=== PATIENT | female | born 1965 | race Hispanic/Latino ===

== ENCOUNTER → 2018-02-20 | Outpatient (CLI) | payer MEDICARE ==
[~2018-02-20] MED LIST: ASPIRIN81 MG PO; Cyclobenzaprine Hcl PO; Insulin Detemir SQ; JANUVIA100 MG PO; LOPRESSOR25 MG PO; Nifedipine PO; PROTONIX40 MG/ML PO; REGLAN10 MG PO
--- NOTE | 2018-02-20 12:44 | Diagnostic Imaging Report ---
EXAMINATION: Renal Doppler ultrasound. CLINICAL HISTORY :Hypertension, end stage renal disease. COMPARISON: <None available.> TECHNIQUE: Grayscale and color Doppler evaluation of the kidneys and bladder was performed in transverse and longitudinal planes. Doppler interrogation of the main, hilar, segmental and arcuate renal arteries bilaterally as well as evaluation of the aorta were performed. DISCUSSION: Exam somewhat limited by bowel gas and inability to breath hold. RIGHT KIDNEY: The right kidney measures 9.6 cm in length and shows normal echogenicity. The right renal cortex measures 1.6 cm. No hydronephrosis, shadowing calculi or solid mass lesions. The right main renal artery ostium could not be visualized due to overlying bowel gas. Right main renal artery PSV is 107 cm/s. Right hilar renal artery PSV is 78.8. Highest right segmental artery PSV is 60.7 cm/sec. Arterial waveforms are normal. The right renal artery PSV/aortic PSV ratio is 1.2. LEFT KIDNEY: The left kidney measures 10 cm in length and shows normal echogenicity. The left renal cortex measures 1.6 cm. No hydronephrosis, shadowing calculi or solid mass lesions. Left main renal artery PSV is 93.9 cm/sec. Left hilar renal artery PSV is 73.9. Highest left segmental artery PSV is 60.7 cm/sec. Arterial waveforms are normal. The left renal artery PSV/aortic PSV ratio is 1.1. Abdominal aortic PSV is 88.5 cm/sec. BLADDER: Unremarkable. IMPRESSION: Exam somewhat limited by bowel gas and inability to breath hold. Unremarkable renal doppler ultrasound. No sonographic evidence of renal artery stenosis. Signed by: Dr. Wero Yang MD on 02/20/2018 12:40 PM
== END ==
LOC: US 09:40
PROVIDERS: ATTEND Internal Medicine Nephrology
DX: N18.6 End stage renal disease (principal); I10 Essential (primary) hypertension
CPT/HCPCS: 93976

== ENCOUNTER 2018-08-22 23:59 | Emergency (ER) | payer MEDICARE ==
[~2018-08-22] VITALS: Ht 154.9 cm; Wt 83.5 kg
--- OUTSIDE RECORDS SUMMARY | 2018-08-23 00:02 | XMS REPORT ---
Author [facility] Address Unknown Phone Unavailable Care Team Providers Care Park Guard Name Role Phone RENETTA BELLAMY Unavailable Unavailable Payers Payer Name Policy Type Policy Number Effective Date Expiration Date Problems This patient has no known problems. Allergies, Adverse Reactions, Alerts Allergy Name Allergy Type Status Severity Reaction(s) Onset Date Inactive Date Treating Clinician Comments shellfish derived DA Active MO 2018-03-06 00:00:00 No Known Drug Allergies DA Active U 2017-05-30 00:00:00 sea food DA Active MO 2016-04-21 00:00:00 Medications This patient has no known medications. Results Test Description Test Time Test Comments Text Results Atomic Results Result Comments SCR MAMM BILATERAL GIGI CAD DIGITAL 2018-05-15 14:25:23 - SCR MAMM BILATERAL GIGI CAD DIGITALBILATERAL DIGITAL SCREENING MAMMOGRAM 3D/2D WITH CAD: 05/15/2018CLINICAL: Asymptomatic. Digital breast tomosynthesis was performed in addition to routine CC and MLO views. Current mammographic images were evaluated by either a [employer] M-Vu or a [employer] ImageChecker CAD (computer aided detection system). Comparison is made to exams dated 04/07/2013 mammogram, 02/26/2012 mammogram, and 01/30/2011 mammogram - [facility]-. There are scattered fibroglandular tissues in both breasts. There are benign scattered calcifications in both breasts. No suspicious mass, architectural distortion, malignant type calcification, or lymph node abnormality detected. Breast architecture is stable compared to prior exams.IMPRESSION: BENIGNThere is no mammographic evidence of malignancy. Resume annual screening mammography in one year. Fercho Mcgregor M.D. ss/penrad:05/15/2018 14:25:23 Employee Placement Specialist: Erica ROCHE, [facility]-FWletter sent: BIRADS 1-2 Normal Mammogram BI-RADS: 2 Benign US RENAL/LIVER DOPPLER LTD 2018-02-20 12:28:00 [place] [id number] Patient Name: DIEGO ELIZABETH V MR #: [id number] : 1965 Age/Sex: 52/F Req #: [id number] Adm Physician: Ordered by: RENETTA BELLAMY MD Report #: [id number] Location: US Room/Bed: Procedure: [id number] US/US RENAL/LIVER DOPPLER LTD Exam Date: Exam Time: REPORT STATUS: Signed EXAMINATION: Renal Doppler ultrasound. CLINICAL HISTORY :Hypertension, end stage renal disease. COMPARISON: <None available.> TECHNIQUE: Grayscale and color Doppler evaluation of the kidneys and bladder was performed in transverse and longitudinal planes. Doppler interrogation of the main, hilar, segmental and arcuate renal arteries bilaterally as well as evaluation of the aorta were performed. DISCUSSION: Exam somewhat limited by bowel gas and inability to breath hold. RIGHT KIDNEY: The right kidney measures 9.6 cm in length and shows normal echogenicity. The right renal cortex measures 1.6 cm. No hydronephrosis, shadowing calculi or solid mass lesions. The right main renal artery ostium could not be visualized due to overlying bowel gas. Right main renal artery PSV is 107 cm/s. Right hilar renal artery PSV is 78.8. Highest right segmental artery PSV is 60.7 cm/sec. Arterial waveforms are normal. The right renal artery PSV/aortic PSV ratio is 1.2. LEFT KIDNEY: The left kidney measures 10 cm in length and shows normal echogenicity. The left renal cortex measures 1.6 cm. No hydronephrosis, shadowing calculi or solid mass lesions. Left main renal artery PSV is 93.9 cm/sec. Left hilar renal artery PSV is 73.9. Highest left segmental artery PSV is 60.7 cm/sec. Arterial waveforms are normal. The left renal artery PSV/aortic PSV ratio is 1.1. Abdominal aortic PSV is 88.5 cm/sec. BLADDER: Unremarkable. IMPRESSION: Exam somewhat limited by bowel gas and inability to breath hold. Unremarkable renal doppler ultrasound. No sonographic evidence of renal artery stenosis. Signed by: Dr. Rocky Vann MD on 02/20/2018 12:40 PM Dictated By: ROCKY VANN MD [id number] Transcribed By: CHANO on 02/20/18 1240 COPY TO: RENETTA BELLAMY MD
--- OUTSIDE RECORDS SUMMARY | 2018-08-23 00:02 | XMS REPORT | Clinical Summary ---
Author Author [facility] Address Unknown Phone Unavailable Care Team Providers Care Instrumentation Tech Name Role Phone Pcp, No PCP Unavailable Allergies Comments Active Allergy Reactions Severity Noted Date Shellfish Containing 03/30/2018 Products Medications End Date Status Medication Sig Dispensed Refills Start Date Active glipiZIDE (GLUCOTROL) 5 Take 5 mg by 0 MG tablet mouth daily. Active atorvastatin (LIPITOR) 10 Take 10 mg by 0 MG tablet mouth daily. Active FA-vit Take 1 tablet 0 Bcomp&C-ombakvgy-nttg by mouth (FOLIC ACID-VITAMIN B daily. COMPLEX-VITAMIN J-[id number]) 3-70-15 mg-mcg-mg Tab Active amLODIPine (NORVASC) 10 Take 10 mg by 0 MG tablet mouth daily. Active metoprolol (LOPRESSOR) Take 100 mg 0 100 MG tablet by mouth 2 (two) times daily. Active lisinopril Take 40 mg by 0 (PRINIVIL,ZESTRIL) 40 MG mouth daily. tablet Active aspirin 81 MG EC tablet Take 81 mg by 0 mouth daily. Active lactulose (CHRONULAC) 10 Take 20 g by 0 gram/15 mL solution mouth 2 (two) times daily. Active Problems Not on file Encounters Care Team Description Date Type Specialty Jessica Neely MD [place], Florencia P RN ESRD (end stage renal disease) on dialysis ([facility]) (Primary Dx); Pre-transplant evaluation for chronic kidney disease; Diabetes mellitus due to underlying condition with chronic kidney disease on chronic dialysis, without long-term current use of insulin ([facility]); Hypertensive renal disease 05/02/2018 Office Visit Transplant Jessica Neely MD ESRD (end stage renal disease) on dialysis (HCC); Pre-transplant evaluation for chronic kidney disease; Diabetes mellitus due to underlying condition with chronic kidney disease on chronic dialysis, without long-term current use of insulin (HCC); Hypertensive renal disease 05/02/2018 Orders Only Transplant Hepatology Esthela Doshi, [place] 04/28/2018 Abstract Transplant Christiana Padron 04/13/2018 Abstract Transplant Hepatology Christiana Padron 04/13/2018 Abstract Transplant Hepatology Esthela Doshi RN 04/13/2018 Abstract Transplant Christiana Padron Appointment (Patient called back after having scheduled her appt for 05/09 to request another date so her daughter can attend the evaluation with her. Chose May 02 instead.) 04/03/2018 Telephone Transplant Christiana Padron Appointment (Called pt to [facility] renal tx eval appt. No answer. Left detailed voicemail msg and call back info.) 03/31/2018 Telephone Transplant Christiana Padron 03/30/2018 Abstract Transplant after 08/22/2017 Social History Date Tobacco Use Types Packs/Day Years Used Never Assessed Sex Assigned at Date Recorded Not on file Industry Job Start Date Occupation Not on file Not on file Not on file Travel End Travel History Travel Start No recent travel history available. Last Filed Vital Signs Time Taken Vital Sign Reading - Blood Pressure - - Pulse - - Temperature - - Respiratory Rate - - Oxygen Saturation - - Inhaled Oxygen - Concentration 03/30/2018 12:33 PM [employer]CIAL LOAN CO[employer]INATOR Weight 86.2 kg (190 lb) 03/30/2018 12:33 PM COMMERCIAL LOAN COORDINATOR Height 154.9 cm (5' 1") 03/30/2018 12:33 PM COMMERCIAL LOAN COORDINATOR Body Mass Index 35.9 Plan of Treatment Not on file Procedures Comments Procedure Name Priority Date/Time Associated Diagnosis TRANSFUSION SERVICE 05/03/2018 REPORT - SCAN 5:55 PM COMMERCIAL LOAN COORDINATOR TYPE AND SCREEN, Routine 05/02/2018 ESRD (end stage renal AUTOMATED 11:28 AM COMMERCIAL LOAN COORDINATOR disease) on dialysis (HCC) Pre-transplant evaluation for chronic kidney disease Diabetes mellitus due to underlying condition with chronic kidney disease on chronic dialysis, without long-term current use of insulin (HCC) Hypertensive renal disease after 08/22/2017 Results * TRANSFUSION SERVICE REPORT - SCAN (05/03/2018 5:55 PM COMMERCIAL LOAN COORDINATOR) Narrative Performed At * Type and Screen, Automated (05/02/2018 11:28 AM COMMERCIAL LOAN COORDINATOR) ABO/RH AUTOMATED (BEAKER) A POSITIVE [facility] Ab Scrn NEGATIVE [facility] Specimen Blood Performing Organization Address City/State/Zipcode Phone Number [facility] [address] [place] [address] [facility] after 08/22/2017 Insurance Payer Benefit Subscriber ID Type Phone Address Plan / Group MEDICARE MEDICARE A xxxxxxxxxx Medicare B MCR SUPPLEMENT/INDIVIDUAL AARP/UNITE xxxxxxxxxxx [facility] D HEALTHCARE
--- NOTE | 2018-08-23 00:20 | NUR ---
DR BERMAN INFORMED OF BS [id number].
[2018-08-23 00:31] LABS: BASOPHILS % 0.5 % (0.0-1.0); EOSINOPHILS # (AUTO) 0.3 (0.0-0.4); EOSINOPHILS % 3.7 % (0.0-6.0); HEMATOCRIT 29.6 % (34.2-44.1); HEMOGLOBIN 9.8 g/dL (12.0-16.0); LYMPHOCYTES # (AUTO) 2.5 (1.0-3.2); MEAN CORPUSCULAR HEMOGLOBIN 30.5 pg (28-32); MEAN CORPUSCULAR HGB CONC 33.1 g/dL (31-35); MEAN CORPUSCULAR VOLUME 92.2 fL (81-99); MONOCYTES # (AUTO) 0.4 (0.2-0.8); MONOCYTES % 5.3 % (4.4-11.3); NEUTROPHILS % 60.1 % (38.7-80.0); PLATELET COUNT 205 x10e3/uL (140-360); RED BLOOD COUNT 3.21 x10e6/uL (3.6-5.1); RED CELL DISTRIBUTION WIDTH 12.5 % (11.7-14.4)
[2018-08-23 00:52] LABS: ALANINE AMINOTRANSFERASE 32 IU/L (0-55); ALBUMIN 3.1 g/dL (3.5-5.0); ALBUMIN/GLOBULIN RATIO 0.9 (0.8-2.0); ALKALINE PHOSPHATASE 170 IU/L (40-150); ANION GAP 16.1 mmol/L (8-16); BLOOD UREA NITROGEN 68 mg/dL (7-26); BUN/CREATININE RATIO 9 (6-25); CARBON DIOXIDE 17 mmol/L (22-29); CHLORIDE 104 mmol/L (98-107); CREATINE KINASE 70 IU/L (29-168); CREATININE, SERUM 7.27 mg/dL (0.57-1.11); EST GLOMERULAR FILTRATION RATE 6 ML/MIN (60-); LIPASE 71 U/L (8-78); POTASSIUM 5.1 mmol/L (3.5-5.1); SODIUM 132 mmol/L (136-145)
[2018-08-23 00:54] LABS: GLUCOSE 464 mg/dL (74-118)
--- NOTE | 2018-08-23 00:56 | NUR ---
Jennie lyons in [facility] - 08/23/18 at [address] BERMAN INFORMED OF BS 425.
[2018-08-23] MEDS ORDERED: HYDRALAZINE HCL 20 MG/ML VIAL IV STA (01:07)
[2018-08-23] MEDS ORDERED: INSULIN REGULAR, HUMAN 100 UNIT/1 ML 3ML VIAL IV ONE (01:15)
[2018-08-23 01:30] LABS: CLARITY,URINE CLEAR (CLEAR); COLOR,URINE YELLOW (YELLOW); KETONES,URINE NEGATIVE (NEGATIVE); LEUKOCYTE ESTERASE ,URINE NEGATIVE (NEGATIVE); NITRITE,URINE NEGATIVE (NEGATIVE); PROTEIN,URINE DIPSTICK 2+ (NEGATIVE)
[2018-08-23 01:31] LABS: BILIRUBIN,URINE NEGATIVE (NEGATIVE); URINE UROBILINOGEN 0.2 mg/dL (0.2 - 1)
[2018-08-23 01:41] LABS: BACTERIA,URINE FEW /HPF; EPITHELIAL CELLS,URINE FEW /LPF; RBC,URINE 21-50 /HPF (0-5); WBC,URINE (MAN) 0-5 /HPF (0-5)
--- NOTE | 2018-08-23 02:19 | Diagnostic Imaging Report ---
EXAMINATION: CHEST SINGLE (NOT PORTABLE) INDICATION: ^ERMD ORDER ^[id number] ^[id number] ^Y COMPARISON: 04/21/2016 FINDINGS: AP view TUBES and LINES: None. LUNGS: Lungs are well inflated. Lungs are clear. There is no evidence of pneumonia or pulmonary edema. PLEURA: No pleural effusion or pneumothorax. HEART AND MEDIASTINUM: The cardiac silhouette is mildly enlarged on this AP view, unchanged. BONES AND SOFT TISSUES: No acute osseous lesion. Soft tissues are unremarkable. UPPER ABDOMEN: No free air under the diaphragm. IMPRESSION: No acute thoracic abnormality. No change from prior exam. Signed by: Dr. Filiberto Chaudhari MD on 08/23/2018 2:16 AM
--- NOTE | 2018-08-23 02:22 | Diagnostic Imaging Report ---
EXAM: Abdomen 2 Views INDICATION: ^ORDER PLACED BY ^[id number] ^[id number] ^Y COMPARISON: None FINDINGS: Limited by body habitus. Nonobstructive bowel gas pattern. No signs of pneumoperitoneum. Moderate colonic stool burden. No acute osseous abnormality. Clear lung bases. Pelvic phleboliths. Vascular calcifications. IMPRESSION: Nonobstructive bowel gas pattern. Signed by: Dr. Filiberto Chaudhari MD on 08/23/2018 2:19 AM
[2018-08-23 02:25] VITALS: BP 155/67
== END 2018-08-23 02:40 | disposition home or self-care (01) ==
LOC: ER 23:59
DX: R53.1 Weakness (principal); E11.65 Type 2 diabetes mellitus with hyperglycemia; N18.3 Chronic kidney disease, stage 3 (moderate); Z99.2 Dependence on renal dialysis
CPT/HCPCS: 36415; 71045; 74018; 80053; 81001; 82550; 82553; 82948; 83690; 83880; 84484; 85025; 93005; 96374; 99284; J0360

== ENCOUNTER → 2020-06-13 | Outpatient (CLI) | payer MEDICARE | LOC: RAD 11:27 | PROVIDERS: ATTEND Internal Medicine Gastroenterology | DX: R10.30 Lower abdominal pain, unspecified (principal); R10.10 Upper abdominal pain, unspecified | CPT/HCPCS: 74018 ==